=== PATIENT | male | born 1945 | race Caucasian/White ===

== ENCOUNTER 2025-04-17 23:49 | Inpatient (IN) | payer MEDICARE ==
[~2025-04-17] VITALS: Ht 177.8 cm; Wt 119.0 kg
[2025-04-18 00:29] LABS: BASOPHILS ABSOLUTE AUTO 0.04 K/mm3 (0.00-0.23); BASOPHILS PERCENT AUTO 0 % (0-2); EOSINOPHILS ABSOLUTE AUTO 0.02 K/mm3 (0.00-0.68); EOSINOPHILS PERCENT AUTO 0 % (0-6); Hematocrit 37.1 % (37.0-53.0); Hemoglobin 12.2 g/dL (13.5-17.5); IMMATURE GRAN PERCENT AUTO 1 % (0-1); LYMPHOCYTES ABSOLUTE AUTO 0.35 K/mm3 (0.84-5.20); LYMPHOCYTES PERCENT AUTO 2 % (21-46); MONOCYTES ABSOLUTE AUTO 1.29 K/mm3 (0.16-1.47); MONOCYTES PERCENT AUTO 6 % (4-13); Mean Corpuscular HGB 30.8 pg (26.0-34.0); Mean Corpuscular HGB Conc 32.9 g/dL (31.5-36.5); Mean Corpuscular Volume 94 fL (80-100); Mean Platelet Volume 9.3 fL (9.1-12.4); NEUTROPHILS ABSOLUTE AUTO 20.04 K/mm3 (1.96-9.15); NEUTROPHILS PERCENT AUTO 91 % (41-73); Platelet Count 173 K/mm3 (150-400); RDW Coefficient Variation 15.4 % (11.7-14.2); RDW Standard Deviation 52.5 fL (35.1-46.3); Red Blood Cell Count 3.96 M/mm3 (4.30-5.90); White Blood Cell Count 21.94 K/mm3 (4.00-11.30)
[2025-04-18] MEDS ORDERED: CefTRIAXone Sodium 2,000 MG in NS 50 ML IV ONE (00:50)
[2025-04-18] MEDS ORDERED: Azithromycin 500 MG in NS 250 ML IV ONE (00:50)
[2025-04-18 00:57] LABS: Albumin/Globulin Ratio 0.9 (0.8-1.8); Bilirubin, Total 0.5 mg/dL (0.1-1.0); Calcium, Blood 8.1 mg/dL (8.5-10.1); Creatinine, Blood 1.33 mg/dL (0.60-1.20); Globulin, Blood 3.5 g/dL (2.2-4.0); Potassium, Blood 4.6 mmol/L (3.5-5.5); Total Protein, Blood 6.5 g/dL (6.4-8.2)
[2025-04-18 01:50] LABS: Base Excess Venous -1.5 mmol/L; Bicarbonate Venous 23.3 mmol/L (24.0-30.0); pH Blood Venous 7.42 (7.34-7.37)
[2025-04-18] MEDS ORDERED: Ondansetron HCl 2 MG / ML 2ML Vial IV PRN (01:50)
[2025-04-18] MEDS ORDERED: Acetaminophen 325 MG TABLET PO PRN (01:50)
[2025-04-18] MEDS ORDERED: Ipratropium/Albuterol SulF 2.5-0.5MG/3 ML Amp INH SCH (01:50)
[2025-04-18] MEDS ORDERED: ALBU90OI INH (02:42)
[2025-04-18] MEDS ORDERED: FAMO20 PO (02:42)
[2025-04-18] MEDS ORDERED: ATOR40TA PO (02:42)
[2025-04-18] MEDS ORDERED: TAMS.4ER PO (02:42)
[2025-04-18] MEDS ORDERED: ESCI20 PO (02:43)
[2025-04-18] MEDS ORDERED: METO50ER PO (02:43)
[2025-04-18] MEDS ORDERED: BUPR150ER PO (02:47)
[2025-04-18] MEDS ORDERED: METF500 PO (02:47)
[2025-04-18] MEDS ORDERED: CLOP75 PO (02:48)
[2025-04-18 03:22] VITALS: BP 124/71
[2025-04-18 03:25] LABS: Influenza A, PCR NEGATIVE (NEGATIVE); Influenza B, PCR NEGATIVE (NEGATIVE); Resp Syncytial Virus, PCR NEGATIVE (NEGATIVE); SARS-Cov-2 (COVID-19) PCR, MMC NEGATIVE (NEGATIVE)
[2025-04-18 05:17] LABS: BASOPHILS ABSOLUTE AUTO 0.03 K/mm3 (0.00-0.23); BASOPHILS PERCENT AUTO 0 % (0-2); EOSINOPHILS PERCENT AUTO 0 % (0-6); Hematocrit 35.7 % (37.0-53.0); Hemoglobin 11.9 g/dL (13.5-17.5); IMMATURE GRAN ABSOLUTE AUTO 0.44 K/mm3 (0.00-0.10); IMMATURE GRAN PERCENT AUTO 2 % (0-1); LYMPHOCYTES ABSOLUTE AUTO 0.25 K/mm3 (0.84-5.20); LYMPHOCYTES PERCENT AUTO 1 % (21-46); MONOCYTES ABSOLUTE AUTO 0.47 K/mm3 (0.16-1.47); MONOCYTES PERCENT AUTO 2 % (4-13); Mean Corpuscular HGB 31.6 pg (26.0-34.0); Mean Corpuscular HGB Conc 33.3 g/dL (31.5-36.5); Mean Corpuscular Volume 95 fL (80-100); Mean Platelet Volume 9.5 fL (9.1-12.4); NEUTROPHILS ABSOLUTE AUTO 28.32 K/mm3 (1.96-9.15); NEUTROPHILS PERCENT AUTO 96 % (41-73); Platelet Count 171 K/mm3 (150-400); RDW Coefficient Variation 15.4 % (11.7-14.2); RDW Standard Deviation 53.1 fL (35.1-46.3); Red Blood Cell Count 3.77 M/mm3 (4.30-5.90); White Blood Cell Count 29.51 K/mm3 (4.00-11.30)
[2025-04-18 05:51] LABS: Albumin/Globulin Ratio 0.9 (0.8-1.8); Bilirubin, Total 0.7 mg/dL (0.1-1.0); Bun/Creatinine Ratio 15.7 (12.0-20.0); Calcium, Blood 8.2 mg/dL (8.5-10.1); Creatinine, Blood 1.34 mg/dL (0.60-1.20); Globulin, Blood 3.5 g/dL (2.2-4.0); Total Protein, Blood 6.5 g/dL (6.4-8.2)
--- NOTE | 2025-04-18 06:59 | NUR ---
RECV FROM ED SCIENTIFIC AIDE VSS. A&O X3 APPEARS DISORIENTED. W/ O2 N/C 2LPM WITH KNOWN HX OF COPD, MULTIPLE FALLS. ON DNR STATUS W/ DAUGHTER HC PROXY. SELF CARE-DEFICIT NOTED PT ARRIVED VERY SMELLY W/ INCONTINENCE OF BOWEL & URINE. ASSESSMENT AND HISTORY DONE AND SOME ANSWERS SEEM UNIDENTICAL W/ PREVIOUS NOTES. RESTED WELL AT NIGHT W/O ANY PROBLEM AND RR IMPROVED GRADUALLY.
[2025-04-18 07:46] VITALS: BP 131/57
[2025-04-18] MEDS ORDERED: Magnesium Sulf 2 GM/Water 50ML 50 ML IV STA (07:52)
--- NOTE | 2025-04-18 08:59 | NUR ---
OUT OF ROOM NOTE: PATIENT LEFT THE ROOM VIA GURNEY AT THIS TIME TO IMAGING.
[2025-04-18] MEDS ORDERED: Clopidogrel Bisulfate 75 MG Tab PO SCH (09:00)
[2025-04-18] MEDS ORDERED: Tamsulosin HCl 0.4 MG Cap PO SCH (09:00)
[2025-04-18] MEDS ORDERED: Lactobacil 2-S.Thermo-Bifido 1 1 Cap PO SCH (09:00)
[2025-04-18] MEDS ORDERED: Famotidine 20 MG Tab PO SCH (09:00)
[2025-04-18] MEDS ORDERED: GuaiFENesin 600 MG TabCR PO SCH (09:00)
[2025-04-18] MEDS ORDERED: Citalopram Hydrobromide 20 MG Tab PO SCH (09:00)
[2025-04-18] MEDS ORDERED: PredniSONE 20 MG Tab PO SCH (09:00)
[2025-04-18] MEDS ORDERED: buPROPion HCL 150 MG TAB.SR.12H PO SCH (09:00)
[2025-04-18] MEDS ORDERED: Enoxaparin 40 MG/0.4 ML SYR SC SCH (09:00)
[2025-04-18] MEDS ORDERED: Atorvastatin 40 MG Tab PO SCH (09:00)
[2025-04-18] MEDS ORDERED: Metoprolol Succinate 50 MG TABCR PO SCH (09:00)
[2025-04-18] MEDS ORDERED: Piperacillin/Tazobactam Sod 4.5 GM in NS 100 ML IV SCH (12:30)
[2025-04-18] MEDS ORDERED: NS 250 ML IV PRN (12:35)
[2025-04-18] MEDS ORDERED: Nicotine 21 MG PATCH TOP SCH (13:00)
--- NOTE | 2025-04-18 14:45 | NUR ---
HOSPITALIST NOTIFICATION NOTE: RECEIVED A CALL FROM JAMES YOUNG (PRE[employer] WORKER) AT 1254 REGARDING THORACENTESIS ORDERED. PER JAMES SHE SPOKE TO RADIOLOGIST AND THERE IS NOT ENOUGH FLUID TO DRAINED. SO THEY DECIDED TO CANCEL THE ORDER. NOTIFIED DR. KOCH, NO NEW ORDER AT THIS TIME.
[2025-04-18 16:13] VITALS: BP 111/46
[2025-04-18] MEDS ORDERED: Insulin Human Lispro 100 Units/ML 3ML Syringe SC SCH (16:30)
--- NOTE | 2025-04-18 17:41 | NUR ---
SHIFT SUMMARY: PATIENT A/OX3-4, PLEASANT AND COOPERATIVE c CARE. PATIENT DENIES CP/PRESSURE, SOB, N/V AND DIZZINESS. PATIENT CURRENTLY ON 2L O2, SATTING 96-98%, ON CONTINUES PULSE OX. PATIENT REPORTS USES 2-3L AT HS AND SOMETIMES DURING THE DAY AT HOME. PATIENT MAKE NOISES GRUNTING AND MOANING SOUNDS T/O SHIFT. WHEN ASKED OF WHY HE MAKES THIS SOUNDS, PATIENT REPLIED "IT'S NORMAL FOR ME I FEEL BETTER WHEN I MADE THIS NOISES. I HAVE BEEN DOING THIS FOR 12 YEARS." PATIENT REPORTS SMOKE 1-2 PACKS OF CIGARETTE A DAY. PATIENT EDUCATED ON SMOKING CESSATION OR EVEN QUITTING COMPLETELY. PATIENT STATED, "HONEY I HAVE NO DESIRE QUITTING SMOKING. I HAVE BEEN SMOKING CIGARETTE SINCE I WAS 10 YRS OLD. PATIENT OFFERED NICOTINE PATCH AND AGREED. NICOTINE PATCH IN PLACE TO ALL. DR. HOLLINS CAME IN THIS PM FOR CONSULT AND SPOKE TO PATIENT c PLAN OF CARE. PATIENT HAS GREAT APPETITE, CONTIN/INCON OF BLADDER, USES URINAL, ATTENDS IN PLACED AND CHANGED T/O SHIFT. PATIENT REFUSED BEDBATH THIS SHIFT. PATIENT RECEIVED SCHEDULED MEDS PER EMAR. VITAL SIGNS REVIEWED. BED ALARM ON FOR SAFETY. CALL LIGHT IN REACH.
[2025-04-18 19:33] VITALS: BP 131/55
[2025-04-19 04:04] VITALS: BP 125/52
[2025-04-19 05:05] LABS: BASOPHILS ABSOLUTE AUTO 0.02 K/mm3 (0.00-0.23); BASOPHILS PERCENT AUTO 0 % (0-2); EOSINOPHILS PERCENT AUTO 0 % (0-6); Hematocrit 35.8 % (37.0-53.0); Hemoglobin 11.8 g/dL (13.5-17.5); IMMATURE GRAN ABSOLUTE AUTO 0.21 K/mm3 (0.00-0.10); IMMATURE GRAN PERCENT AUTO 1 % (0-1); LYMPHOCYTES ABSOLUTE AUTO 0.37 K/mm3 (0.84-5.20); LYMPHOCYTES PERCENT AUTO 2 % (21-46); MONOCYTES ABSOLUTE AUTO 0.65 K/mm3 (0.16-1.47); MONOCYTES PERCENT AUTO 3 % (4-13); Mean Corpuscular HGB 32.1 pg (26.0-34.0); Mean Corpuscular Volume 97 fL (80-100); Mean Platelet Volume 9.6 fL (9.1-12.4); NEUTROPHILS ABSOLUTE AUTO 22.43 K/mm3 (1.96-9.15); NEUTROPHILS PERCENT AUTO 95 % (41-73); Platelet Count 163 K/mm3 (150-400); RDW Coefficient Variation 15.6 % (11.7-14.2); RDW Standard Deviation 54.7 fL (35.1-46.3); Red Blood Cell Count 3.68 M/mm3 (4.30-5.90); White Blood Cell Count 23.68 K/mm3 (4.00-11.30)
--- NOTE | 2025-04-19 05:32 | NUR ---
SUMMARY: PT A/OX3-4, ENDORSES NEEDS AND PLEASANT AND APPROPRIATE W/CARE. BED ALARM ON FOR SAFETY AND FALLS PRECEEDING ADMIT. HE'S 1-2PA OOB AND USED URINAL AD BOOM AT EOB. ATTENDS CHANGED PRN FOR OCC.URGE INCONTINENCE. 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 PT FREQ HEARD MOANING AND GRUNTING BUT DENIES DISCOMFORT OR DISTRESS, STATING "I'VE DONE IT FOR YEARS AND IT JUST MAKES ME FEEL BETTER. ABX RECEIVED PER EMAR AND TYLENOL PROVIDED FOR TOLERABLE RELIEF OF R.HIP PAIN. NO ACUTE CHANGES, VSS AND AFEBRILE. WILL REPORT TO DAY RN.
[2025-04-19] MEDS ORDERED: CefTRIAXone Sodium 1,000 MG in NS 100 ML IV SCH (06:00)
[2025-04-19] MEDS ORDERED: Azithromycin 500 MG in NS 250 ML IV SCH (06:00)
[2025-04-19 06:08] LABS: Albumin, Blood 2.8 g/dL (3.4-5.0); Albumin/Globulin Ratio 0.8 (0.8-1.8); Bilirubin, Total 0.5 mg/dL (0.1-1.0); Bun/Creatinine Ratio 21.6 (12.0-20.0); Calcium, Blood 8.3 mg/dL (8.5-10.1); Creatinine, Blood 1.48 mg/dL (0.60-1.20); Globulin, Blood 3.6 g/dL (2.2-4.0); Potassium, Blood 4.4 mmol/L (3.5-5.5); Total Protein, Blood 6.4 g/dL (6.4-8.2)
[2025-04-19 07:20] VITALS: BP 146/62
[2025-04-19] MEDS ORDERED: Enoxaparin 40 MG/0.4 ML SYR SC SCH ×2 (09:00→16:00)
[2025-04-19 11:12] LABS: Acinetobacter baumannii DNA Not Detected copy/mL (NOT DETECT); Enterobacter cloacae DNA Not Detected copy/mL (NOT DETECT); Escherichia coli DNA Not Detected copy/mL (NOT DETECT); Haemophilus influenzae DNA Not Detected copy/mL (NOT DETECT); Klebsiella aerogenes DNA Not Detected copy/mL (NOT DETECT); Klebsiella oxytoca DNA Not Detected copy/mL (NOT DETECT); Klebsiella pneumoniae DNA Not Detected copy/mL (NOT DETECT); Moraxella catarrhalis DNA Not Detected copy/mL (NOT DETECT); Proteus sp DNA Not Detected copy/mL (NOT DETECT); Pseudomonas aeruginosa DNA Not Detected copy/mL (NOT DETECT); Serratia marcescens DNA Not Detected copy/mL (NOT DETECT); Staphylococcus aureus DNA Not Detected copy/mL (NOT DETECT); Streptococcus agalactiae DNA Not Detected copy/mL (NOT DETECT); Streptococcus pneumoniae DNA Detected Bin 10^6 copy/mL (NOT DETECT); Streptococcus pyogenes DNA Not Detected copy/mL (NOT DETECT)
[2025-04-19 11:13] LABS: Adenovirus DNA Not Detected (NOT DETECT); Chlamydia pneumonia Not Detected (NOT DETECT); Human Coronavirus RNA Not Detected (NOT DETECT); Human Metapneumovirus RNA Not Detected (NOT DETECT); Influenza virus A RNA Not Detected (NOT DETECT); Influenza virus B RNA Not Detected (NOT DETECT); Legionella pneumophila Not Detected (NOT DETECT); Mycoplasma pneumoniae Not Detected (NOT DETECT); Parainfluenza virus RNA Not Detected (NOT DETECT); Respiratory syncytial Vir RNA Not Detected (NOT DETECT); Rhinovirus+Enterovirus RNA Detected (NOT DETECT)
[2025-04-19] MEDS ORDERED: Nicotine Polacrilex 2 MG Gum PO PRN ×2 (12:00→16:10)
[2025-04-19 16:25] VITALS: BP 164/71
--- NOTE | 2025-04-19 18:29 | NUR ---
DAY SUMMARY A&O3-4, VSS, O2 IS AT BASELINE DOSE, CURRENTLY SATTING 95% ON RA (AT HOME USES 02 PRN AND FOR SLEEP). PT WAS IRRITABLE AT SHIFT START BECAUSE HE WAS NOT ABLE TO AMBULATE INDEP, WAS COOPERATIVE WITH PT EVAL TODAY AND AGREED THAT HE IS SAFER CALLING STAFF TO GET OUT OF BED. BED RESTING AT THIS TIME, CALL LIGHT IN REACH, NO C/O ANY KIND, STATES HE IS FEELING BETTER. WILL CONT TO MONITOR UNTIL REPORT GIVEN TO ONCOMING NURSE.
[2025-04-19 19:13] VITALS: BP 134/59
[2025-04-20 02:35] VITALS: BP 156/62
--- NOTE | 2025-04-20 03:50 | NUR ---
SUMMARY: PT A/OX4, IS PLEASANT AND COOPERATIVE W/CARE AND CALLS INTERMITTENTLY TO SPECIFY NEEDS. HE'S SBA OOB BUT USES URINAL AT EOB AD BOOM. OCCASIONAL IMPULSIVITY NOTED W/FALL PREC'S IN PLACE. PT REMAINS ON 2L 02 VIA NC AT HS W/CONT BIOX INTACT AND HAS TOLERATED RA WA. MOIST PRODUCTIVE COUGH PERSISTS BUT LS ARE IMPROVING AND IV ABX RECEIVED PER EMAR. TYLENOL WAS PROVIDED FOR TOLERABLE RELIEF OF BILATERAL HIP AND L.KNEE PAIN. NICOTINE PATCH REMAINS IN PLACE AND NICORETTE GUM PROVIDED PRN PER REQUEST. NO ACUTE CHANGES, VSS AND AFEBRILE. WILL REPORT TO DAY RN.
[2025-04-20 05:31] LABS: BASOPHILS ABSOLUTE AUTO 0.02 K/mm3 (0.00-0.23); BASOPHILS PERCENT AUTO 0 % (0-2); EOSINOPHILS ABSOLUTE AUTO 0.01 K/mm3 (0.00-0.68); EOSINOPHILS PERCENT AUTO 0 % (0-6); Hematocrit 35.3 % (37.0-53.0); Hemoglobin 11.2 g/dL (13.5-17.5); IMMATURE GRAN ABSOLUTE AUTO 0.14 K/mm3 (0.00-0.10); IMMATURE GRAN PERCENT AUTO 1 % (0-1); LYMPHOCYTES ABSOLUTE AUTO 0.63 K/mm3 (0.84-5.20); LYMPHOCYTES PERCENT AUTO 4 % (21-46); MONOCYTES ABSOLUTE AUTO 0.49 K/mm3 (0.16-1.47); MONOCYTES PERCENT AUTO 3 % (4-13); Mean Corpuscular HGB 31.7 pg (26.0-34.0); Mean Corpuscular HGB Conc 31.7 g/dL (31.5-36.5); Mean Corpuscular Volume 100 fL (80-100); Mean Platelet Volume 9.8 fL (9.1-12.4); NEUTROPHILS ABSOLUTE AUTO 16.07 K/mm3 (1.96-9.15); NEUTROPHILS PERCENT AUTO 93 % (41-73); Platelet Count 171 K/mm3 (150-400); RDW Coefficient Variation 15.5 % (11.7-14.2); RDW Standard Deviation 56.2 fL (35.1-46.3); Red Blood Cell Count 3.53 M/mm3 (4.30-5.90); White Blood Cell Count 17.36 K/mm3 (4.00-11.30)
[2025-04-20 06:03] LABS: Albumin, Blood 2.6 g/dL (3.4-5.0); Albumin/Globulin Ratio 0.7 (0.8-1.8); Bilirubin, Total 0.4 mg/dL (0.1-1.0); Bun/Creatinine Ratio 19.9 (12.0-20.0); Calcium, Blood 8.4 mg/dL (8.5-10.1); Creatinine, Blood 1.41 mg/dL (0.60-1.20); Globulin, Blood 3.8 g/dL (2.2-4.0); Potassium, Blood 4.9 mmol/L (3.5-5.5); Total Protein, Blood 6.4 g/dL (6.4-8.2)
[2025-04-20 07:25] VITALS: BP 148/72
[2025-04-20] MEDS ORDERED: ZINC OXIDE/PETROLATUM, YELLOW 1 APPLIC/71 GM PASTE TOP SCH (16:25)
[2025-04-20 19:27] VITALS: BP 160/80
[2025-04-21 02:25] VITALS: BP 159/73
--- NOTE | 2025-04-21 04:21 | NUR ---
SHIFT SUMMARY ADMITTED FOR PNEUMONIA/SEPSIS. DNR CODE. ISOLATION FOR RHINOVIRUS. STEROIDS AND ANTIB RX ARE SCHEDULED. RT TX'S ARE SCHEDULED. 2-3 LPM O2 PRN @ HS IS HIS BASELINE. STANDBY ASSIST W/FWW. A&O X4, IMPULSIVE AT TIMES. CONTINENT/INCONTINENT. ADA DIET. ACHS CBG'S. PLAN IS FOR DC W/HH. NICOTINE PATCH AND NICOTINE GUM ARE BEING USED, HE IS A HEAVY SMOKER. OCCASIONAL PERIODS OF LOUD COUGHING THROUGH THIS SHIFT.
[2025-04-21 05:40] LABS: BASOPHILS ABSOLUTE AUTO 0.02 K/mm3 (0.00-0.23); BASOPHILS PERCENT AUTO 0 % (0-2); EOSINOPHILS ABSOLUTE AUTO 0.02 K/mm3 (0.00-0.68); EOSINOPHILS PERCENT AUTO 0 % (0-6); Hematocrit 36.7 % (37.0-53.0); Hemoglobin 12.2 g/dL (13.5-17.5); IMMATURE GRAN ABSOLUTE AUTO 0.15 K/mm3 (0.00-0.10); IMMATURE GRAN PERCENT AUTO 1 % (0-1); LYMPHOCYTES ABSOLUTE AUTO 0.91 K/mm3 (0.84-5.20); LYMPHOCYTES PERCENT AUTO 6 % (21-46); MONOCYTES ABSOLUTE AUTO 0.44 K/mm3 (0.16-1.47); MONOCYTES PERCENT AUTO 3 % (4-13); Mean Corpuscular HGB 31.4 pg (26.0-34.0); Mean Corpuscular HGB Conc 33.2 g/dL (31.5-36.5); Mean Platelet Volume 9.4 fL (9.1-12.4); NEUTROPHILS ABSOLUTE AUTO 12.76 K/mm3 (1.96-9.15); NEUTROPHILS PERCENT AUTO 89 % (41-73); Platelet Count 181 K/mm3 (150-400); RDW Coefficient Variation 15.5 % (11.7-14.2); RDW Standard Deviation 52.3 fL (35.1-46.3); Red Blood Cell Count 3.88 M/mm3 (4.30-5.90)
[2025-04-21 05:46] LABS: Mean Corpuscular Volume 95 fL (80-100)
[2025-04-21 06:00] LABS: Albumin, Blood 2.9 g/dL (3.4-5.0); Albumin/Globulin Ratio 0.8 (0.8-1.8); Bilirubin, Total 0.4 mg/dL (0.1-1.0); Bun/Creatinine Ratio 16.1 (12.0-20.0); Creatinine, Blood 1.24 mg/dL (0.60-1.20); Globulin, Blood 3.8 g/dL (2.2-4.0); Potassium, Blood 4.5 mmol/L (3.5-5.5); Total Protein, Blood 6.7 g/dL (6.4-8.2)
[2025-04-21 07:38] VITALS: BP 166/76
[2025-04-21] MEDS ORDERED: GUAI600T33 PO (14:06)
[2025-04-21] MEDS ORDERED: AMOCLA875 PO (14:07)
[2025-04-21] MEDS ORDERED: TRELEGY ELLIPT1 EAC1 INH (14:08)
[2025-04-21] MEDS ORDERED: PRED20 PO (14:08)
--- NOTE | 2025-04-21 14:50 | NUR ---
DISCHARGE NOTE PT D/C HOME AT 1445. PT PROVIDED W/ VBERBAL AND WRITEN INSTRUCTIONS AND REPORTED UNDERSTANDING. PT A&OX4, VSS, AMB W/ ASSIST, TOLERATING PO, VOIDING, AND PAIN MANAGED PER EMAR. BELONGINGS WERE RETURNED. O2 DELIVERED BY [facility]. PT ESCOURTED OUT VIA W/C BY KARTIK FINNEGAN. DAUGHTER MARIE PICKING UP PT.
[2025-04-22] MEDS ORDERED: Famotidine 20 MG Tab PO SCH (09:00)
== END 2025-04-21 15:02 | disposition home health service (06) | DRG 871 ==
LOC: ER 23:49 → MEDS 04-18 01:55
PROVIDERS: Emergency Medicine; Family Medicine; Family Medicine Adult Medicine; Internal Medicine; ADMIT Student in an Organized Health Care Education/Training Program
PROC: 5A0935A Assistance with Respiratory Ventilation, Less than 24 Consecutive Hours, High Flow/Velocity Cannula (ICD-10-PCS; 2020-04-18)
PROC: 3E03329 Introduction of Other Anti-infective into Peripheral Vein, Percutaneous Approach (ICD-10-PCS; principal; 2025-04-18)
DX: A41.9 Sepsis, unspecified organism (principal); J18.9 Pneumonia, unspecified organism; J86.9 Pyothorax without fistula; J96.21 Acute and chronic respiratory failure with hypoxia; J44.1 Chronic obstructive pulmonary disease with (acute) exacerbation; J44.0 Chronic obstructive pulmonary disease with (acute) lower respiratory infection; N17.9 Acute kidney failure, unspecified; E87.1 Hypo-osmolality and hyponatremia; Z68.41 Body mass index [BMI] 40.0-44.9, adult; J91.8 Pleural effusion in other conditions classified elsewhere; R65.20 Severe sepsis without septic shock; Z66 Do not resuscitate; Z99.81 Dependence on supplemental oxygen; I12.9 Hypertensive chronic kidney disease with stage 1 through stage 4 chronic kidney disease, or unspecified chronic kidney disease; E11.22 Type 2 diabetes mellitus with diabetic chronic kidney disease; N18.32 Chronic kidney disease, stage 3b; F17.210 Nicotine dependence, cigarettes, uncomplicated; E83.42 Hypomagnesemia; E66.9 Obesity, unspecified; E11.65 Type 2 diabetes mellitus with hyperglycemia; N40.0 Benign prostatic hyperplasia without lower urinary tract symptoms; Z79.02 Long term (current) use of antithrombotics/antiplatelets; Z79.51 Long term (current) use of inhaled steroids; Z79.84 Long term (current) use of oral hypoglycemic drugs; Z79.899 Other long term (current) drug therapy
CPT/HCPCS: 0241U; 0528U; 36415; 71045; 71046; 71260; 80053; 82803; 82947; 83036; 83605; 83615; 83735; 83880; 84145; 84484; 85025; 85379; 87040; 87070; 87081; 87205; 93005; 93010; 94640; 94664; 94760; 94761; 94762; 97116; 97162; 97530; 99285-25; A9270; J0456; J0696; J1650; J2543; J3475; J7050; J7512; Q9967